=== PATIENT | female | born 1980 | race Caucasian/White ===

== ENCOUNTER 2019-02-23 09:28 | Outpatient (CLI) | payer OTHER | END 2019-02-23 09:35 | disposition home or self-care (01) | LOC: EKG 09:28 | DX: Z01.818 Encounter for other preprocedural examination (principal) ==

== ENCOUNTER 2019-02-23 13:15 | Inpatient (IN) | payer OTHER ==
[~2019-02-23] VITALS: Ht 152.4 cm; Wt 49.0 kg
== END 2019-03-01 09:45 | disposition home or self-care (01) | DRG 743 ==
LOC: O/R 13:15 → OB/GYN 02-27 05:30 → O/R 02-27 05:30 → OB/GYN 02-27 08:59 → O/R 02-27 13:15 → OB/GYN 03-01 09:45
PROVIDERS: ADMIT Obstetrics & Gynecology
PROC: 0UB90ZZ Excision of Uterus, Open Approach (ICD-10-PCS; principal; 2019-02-27 07:00)
DX: D25.1 Intramural leiomyoma of uterus (principal); R10.2 Pelvic and perineal pain; N93.8 Other specified abnormal uterine and vaginal bleeding